=== PATIENT | female | born 1990 | race Two or more races ===

== ENCOUNTER → 2023-11-29 | Outpatient (REF) | payer OTHER ==
[2023-12-01 12:33] LABS: HPV APTIMA Not Detected (Not Detected)
== END ==
LOC: M SFHCWAGY 15:07
PROVIDERS: ATTEND Nurse Practitioner Family
DX: Z12.4 Encounter for screening for malignant neoplasm of cervix (principal); R87.619 Unspecified abnormal cytological findings in specimens from cervix uteri
CPT/HCPCS: 87624; G0123